=== PATIENT | male | born 1970 | race Two or more races ===

== ENCOUNTER 2017-04-18 15:26 | Inpatient (IN) | payer MEDICAID ==
[2017-04-18] MEDS ORDERED: IBUPROFEN 600 MG TAB PO PRN (16:37)
--- NOTE | 2017-04-18 16:40 | PDOREHIP ---
Admission [facility] - Admission - 3 Day Assessment Period Admission Date/Day 1: 04/18/17 Day 2: 04/19/17 Day 3: 04/20/17 - Active Diagnoses Comorbidities and Co-existing Conditions at Admission: 89431. None of the Above - Skin Conditions Unhealed Pressure Ulcer (1 or more/Stage 1 or >)-Admission: 0. No
--- NOTE | 2017-04-18 17:27 | GHP ---
[f rep st] HISTORY AND PHYSICAL POST ADMISSION PHYSICIAN EVALUATION AND REHABILITATION TREATMENT PLAN DATE OF ADMISSION: 04/18/2017 DATE OF EVALUATION: 04/18/2017 TIME OF EVALUATION: 1600 hours REFERRING FACILITY: [facility] IMPAIRMENT GROUP: 1.1. DATE OF ONSET: 04/14/2017 REFERRING PHYSICIAN: Dr. Taylor CONSULTING PHYSICIANS: He was seen by neurologist, Dr. Heladio Hayes. REHABLITATION DIAGNOSIS: Cerebrovascular accident ETIOLOGIC DIAGNOSIS: Left body involvement (right brain) HISTORY OF PRESENT ILLNESS: This patient was admitted to [facility] on 04/14/2017, with headaches, left-sided weakness, confusion and disorientation. He had been seen in the emergency department 2 days prior with poorly controlled hypertension, headache and left-sided numbness. At that time , he had a negative head CT, and he was discharged to home. When he was readmitted, MRI of the brain showed a cerebrovascular accident in the right posterior cerebral artery distribution including the right medial temporal lobe and the right thalamus. CT angiogram showed occlusion of the proximal P1 segment of the right posterior cerebral artery and showed mild chronic small- vessel ischemic change. There was atherosclerotic plaque seen in the left intradural vertebral artery. Echocardiogram with bubble study showed mild LVH but did not show any source of embolism. He had monitoring in the hospital and there were no cardiac dysrhythmias noted. He was already prescribed antihypertensives as well as atorvastatin, but he reports that he was not compliant with his medications. His atorvastatin dose was increased from 20 mg to 40 mg daily. His amlodipine at 5 mg daily was discontinued to allow permissive hypertension. He was continued on hydrochlorothiazide 25 mg daily, and losartan 50 mg daily. Clopidogrel was started as well while he was in the hospital. He was noted to have a left homonymous hemianopsia as well as need for assistance with activities of daily living and with mobility. Additionally , cognitive deficits were noted including short-term memory and attention. He was stabilized and appropriate for inpatient rehabilitation OTHER STUDIES AND LABS DURING HIS STAY: Hemoglobin A1c was 5.4. Lipid panel showed a total cholesterol of 176, an HDL of 55, and LDL of 92. Renal function and electrolytes were overall within normal limits. He had mild hypokalemia, but this corrected. Troponin was negative. INR and PT were normal. CBC was normal. PRECAUTIONS: He is a fall risk. ACTIVE COMORBIDITIES: He has no active tier 1, tier 2, or tier 3 comorbidities. PAST MEDICAL HISTORY: 1. Hypertension. 2. Dyslipidemia. PAST SURGICAL HISTORY: He has not had any surgeries. ALLERGIES: There is an allergy listed to prochlorperazine. PRE-HOSPITAL MEDICATIONS: 1. Amlodipine 5 mg p.o. daily. 2. Atorvastatin 20 mg p.o. daily. 3. Hydrochlorothiazide 25 mg p.o. daily. 4. Ibuprofen p.r.n. 5. Losartan 50 mg p.o. daily. ADMISSION MEDICATIONS: 1. Losartan 25 mg p.o. daily. 2. Aspirin 81 mg p.o. daily. 3. Fioricet. 4. Ibuprofen. 5. Hydrochlorothiazide 25 mg p.o. daily. 6. Atorvastatin 40 mg p.o. daily. 7. Fluoxetine 20 mg p.o. daily. 8. Clopidogrel 75 mg p.o. daily. FAMILY HISTORY: Noncontributory. 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 He lives with his . He has adult children who no longer live at home. He is a nonsmoker. He uses occasional alcohol and does not use other substances of abuse. He reports he has 3 or 4 steps to enter the house, and then several other steps once he is in the house. REVIEW OF SYSTEMS: He denies headache at present. He is aware of impaired vision on the left side, and he is unable to locate the examiner initially. He says his left leg feels like it is heavy and bloated, though he otherwise denies focal weakness. He has altered sensation on the left side of his body, he describes it as numbness, including the left side of his face, his back, his left arm, and his left leg. He denies difficulty swallowing. He denies chest pain or palpitations. He denies fevers or chills, weight gain or weight loss, nausea, vomiting, constipation, or diarrhea, dysuria or urinary frequency, skin rash or skin breakdown, joint pain or joint swelling. Otherwise, a 10-point review of systems is negative. PHYSICAL EXAMINATION: VITAL SIGNS: Not yet recorded in the chart, though nurse informed me that his systolic blood pressures were in the 180s and his diastolic in the 1-teens. His weight is 86.6 kg for a body mass index of 29.5. GENERAL: This is an overweight man lying in bed, cooperative and in no acute distress. HEENT: Extraocular movements are intact. Eyes are very dark and it is difficult to determine pupil response. However, pupils are round and symmetric in both eyes. Mucous membranes are moist. Dentition is in good condition. He has a non-crowded airway, Mallampati class 2. NECK: Supple. HEART: There is a regular rate and rhythm with no murmurs, rubs, or gallops. LUNGS: Clear to auscultation bilaterally. ABDOMEN: Soft, nontender, nondistended with normoactive bowel sounds and no hepatosplenomegaly. EXTREMITIES: There is no cyanosis, clubbing, or edema. NEUROLOGIC: He is alert and oriented x3, though he asks the name of the facility. He knows where he is and why he is here. Cranial nerves 2-12 are grossly intact. Strength is 4/5 in the left hand weight calculator and the left triceps, 4+/5 in the left deltoid and left biceps, 4/5 at the left hamstring, and otherwise 5/5 overall in all other muscle groups. Sensation is present to light touch, but he reports that it is abnormal, though he is unable to give more specifics. Deep tendon reflexes are 2+ bilaterally at the biceps, patellar, and Achilles tendons. There is no pronator drift. Visual field testing by confrontation shows a gross left homonymous hemianopsia. [id number] testing is normal on the right upper extremity and is inaccurate though without other movement abnormalities; that is , it is smooth but inaccurate on the left upper extremity. He is able to stand up independently without use of his hands on the bed rails, and has a somewhat wide-based stance. Gait was not tested. CURRENT LEVEL OF FUNCTION: Per the pre-admission screen. Regarding diet, feeding, and swallowing, he was on a regular diet with thin liquids. Regarding grooming, he required standby assist. Dressing was accomplished with set-up for the upper body and minimal assist for the lower body. Toileting was done with standby assist to modified independence. He was continent of bladder and bowel. Bed mobility required only standby assist. For transfers, he required contact guard for [id number] and minimal assist to transfer from bed to chair. Balance required contact guard to minimal assist. Endurance was fair. Regarding gait, he was able to ambulate 250 feet with minimal assist and handheld assistance due to decreased vision and for guiding. He had a wide base of support and increased lateral trunk sway, and decreased swing phase in the left lower extremity. Regarding communication, he was noted to have mild to moderate cognitive deficits and short-term memory, working memory, and attention. IMPRESSION: The patient is a 46-year-old man who unfortunately suffered a cerebrovascular accident in the posterior circulation on the right and comes to rehab with a left homonymous hemianopsia, mild weakness in the left upper and lower extremities, sensory alteration on the left side of his body, and associated deficits to mobility and activities of daily living. Additionally, he was noted to have some short-term memory loss and attention deficit. He is appropriate for inpatient rehabilitation where he will benefit from physical and occupational therapies regarding activities of daily living and mobility with particular attention to visual function per Occupational Therapy. He will be assessed and treated by Speech and Language Pathology regarding cognitive and communication issues. He will have nursing care regarding fall risk, bowel and bladder, skin integrity, medication administration, and medication education. He will have the care of a physician regarding blood pressure management, dyslipidemia, risk for neurologic deterioration, risk for deep venous thrombosis, and optimal medication for neuro recovery. His goal is to return home with outpatient services for a safe discharge. It is anticipated that he will achieve independence with bed mobility, transfers and grooming, and modified independence for bathing and ambulation on level and unlevel surfaces. He will need to be able to negotiate his environment safely with strategies for visual loss, there will be patient and family education, and there will be durable medical equipment as indicated. He will receive therapy with physical therapy, occupational therapy, and speech and language pathology for 60 minutes per day for each discipline on 5-7 days of the week. His expected duration of stay is 7-10 days. It is anticipated that upon discharge, he will continue to benefit from outpatient therapy including OT, BLACKING WHEEL TENDER, and PT, as well as a stroke support group. ASSESSMENT AND PLAN: 1. Right posterior circulation cerebrovascular accident with homonymous hemianopsia and deficits to mobility and activities of daily living. Physical and occupational therapy to optimize mobility, mobility, and activities of daily living, and to optimize visual function. 2. Cognitive and communication deficits to be assessed and treated per Speech and Language Pathology. 3. Secondary stroke prophylaxis. Continue atorvastatin, blood pressure control , and aspirin and clopidogrel. The plan per Neurology was to discontinue the clopidogrel after 1 month. 4. Hypertension. He appeared to be markedly hypertensive upon admission. Blood pressure will be monitored. It is likely that the amlodipine will be resumed in order to optimize his blood pressure. 5. Cryptogenic etiology of the stroke. There is a hypercoagulable panel pending, and these results will be obtained when they are available. 6. Left ventricular hypertrophy should respond to blood pressure control. 7. Pharmacologic treatment for optimizing neuro rehabilitation. He was begun on fluoxetine in the hospital and this will be continued. 8. Prophylaxis: He has ambulated 250' and has no hemiparesis. Observe for mobility. Will not initiate anticoagulation at present. There is no need for GI prophylaxis. /[id number]/MODL MTDD
[2017-04-18] MEDS: oxyCODONE IR 5 MG TAB PO PRN (21:05)
[2017-04-18] MEDS: traZODone 50 MG TAB PO PRN (23:56)
[2017-04-18] MEDS: ACETAMINOPHEN 325 MG TAB PO PRN (23:56)
[2017-04-19] MEDS: ASPIRIN 81 MG CHEWABLE TAB PO SCH (08:29)
[2017-04-19] MEDS: ATORVASTATIN CALCIUM 40 MG TAB PO SCH (08:29)
[2017-04-19] MEDS: FLUoxetine 20 MG CAP PO SCH (08:29)
[2017-04-19] MEDS: HYDROCHLOROTHIAZIDE 25 MG TAB PO SCH (08:29)
[2017-04-19] MEDS: LOSARTAN POTASSIUM 50 MG TAB PO SCH (08:29)
[2017-04-19] MEDS: CLOPIDOGREL BISULFATE 75 MG TAB PO SCH (08:29)
--- NOTE | 2017-04-19 09:36 | SOAPPROG ---
SOAP Progress Note Assessment/Plan: Assessment: 46-year-old man who suffered a right posterior circulation stroke 04/12/2017, with infarction in the medial temporal lobe and thalamus, with left homonymous hemianopsia. * Right posterior circulation cerebrovascular accident with homonymous hemianopsia and deficits to mobility and activities of daily living. Physical and occupational therapy to optimize mobility, mobility, and activities of daily living, and to optimize visual function. * Cognitive and communication deficits to be assessed and treated per Speech and Language Pathology. * Secondary stroke prophylaxis. Continue atorvastatin, blood pressure control, and aspirin and clopidogrel. The plan per Neurology was to discontinue the clopidogrel after 1 month. * Hypertension. It is likely that the amlodipine will need to be resumed in order to optimize his blood pressure. Continue to monitor. * Cryptogenic etiology of the stroke. Most likely vessel 2 vessel embolic stroke. There is a hypercoagulable panel pending, and these results will be obtained when they are available. * Left ventricular hypertrophy should respond to blood pressure control. * Pharmacologic treatment for optimizing neuro rehabilitation. He was begun on fluoxetine in the hospital and this will be continued. * Prophylaxis: He has ambulated 250' and has no hemiparesis. Observe for mobility. Will not initiate anticoagulation at present. There is no need for GI prophylaxis. 04/19/17 11:33 Subjective: Slept well after taking trazodone. Headache yesterday evening; reports headache occurs when he has to think too much or with excessive stimulation. Currently with bifrontal headache over eyebrows while sitting in the PT gym. Denies cough, dyspnea, fevers, chills. Objective: Vital Signs Temp Pulse Resp BP Pulse Ox 36.8 C 62 18 163/116 H 96 04/19/17 07:07 04/19/17 07:07 04/19/17 07:07 04/19/17 08:29 04/19/17 07:07 04/18/17 04/19/17 04/20/17 05:59 05:59 05:59 Intake Total 1100 354 Balance 1100 354 Physical Exam - Physical Exam General Appearance: WD/WN, alert, no apparent distress Respiratory: normal breath sounds, No crackles, No rhonchi, No wheezing Cardiac/Chest: regular rate, rhythm, No edema Skin: normal color, warm/dry Neuro/Psych: alert, normal mood/affect, oriented x 3, No abnormal gait ICD10 Worksheet Patient Problems: Problems Problem Status Onset Cerebrovascular accident (CVA) due to embolism of left posterior cerebral artery Acute HTN (hypertension) Acute Homonymous hemianopsia Acute - ICD10 Problem Qualifiers (1) Homonymous hemianopsia (2) Cerebrovascular accident (CVA) due to embolism of left posterior cerebral artery (3) HTN (hypertension)
[2017-04-19] MEDS: ACET/CAFFEINE/BUTA FIORICET 1 EACH TAB PO PRN (14:10)
[2017-04-19] MEDS: ACETAMINOPHEN 325 MG TAB PO PRN (21:11)
[2017-04-19] MEDS: oxyCODONE IR 5 MG TAB PO PRN (21:12)
[2017-04-19] MEDS: traZODone 50 MG TAB PO PRN (21:16)
[2017-04-20] MEDS: ATORVASTATIN CALCIUM 40 MG TAB PO SCH (09:30)
[2017-04-20] MEDS: CLOPIDOGREL BISULFATE 75 MG TAB PO SCH (09:30)
[2017-04-20] MEDS: HYDROCHLOROTHIAZIDE 25 MG TAB PO SCH (09:30)
[2017-04-20] MEDS: ASPIRIN 81 MG CHEWABLE TAB PO SCH (09:30)
[2017-04-20] MEDS: LOSARTAN POTASSIUM 50 MG TAB PO SCH (09:30)
[2017-04-20] MEDS: FLUoxetine 20 MG CAP PO SCH (09:30)
[2017-04-20] MEDS: ACET/CAFFEINE/BUTA FIORICET 1 EACH TAB PO PRN (13:07)
--- NOTE | 2017-04-20 13:43 | SOAPPROG ---
SOAP Progress Note Assessment/Plan: Assessment: 46-year-old man who suffered a right posterior circulation stroke 04/12/2017, with infarction in the medial temporal lobe and thalamus, with left homonymous hemianopsia. * Right posterior circulation cerebrovascular accident with homonymous hemianopsia and deficits to mobility and activities of daily living. Physical and occupational therapy to optimize mobility, mobility, and activities of daily living, and to optimize visual function. * Cognitive and communication deficits to be assessed and treated per Speech and Language Pathology. * Secondary stroke prophylaxis. Continue atorvastatin, blood pressure control, and aspirin and clopidogrel. The plan per Neurology was to discontinue the clopidogrel after 1 month. * Hypertension. It is likely that the amlodipine will need to be resumed in order to optimize his blood pressure. Continue to monitor. * Headache. Encouraged use of acetaminophen rather than Fioricet. * Cryptogenic etiology of the stroke. Most likely vessel to vessel embolic stroke per Neurology notes from the hospital. There is a hypercoagulable panel pending. D/W lab at [facility]: prothrombin gene mutation, anticardiolipin results to be faxed.. Lupus anticoagulant & Gefof viper venom were send out labs; cancelled, lost in transit. * Left ventricular hypertrophy should respond to blood pressure control. * Pharmacologic treatment for optimizing neuro rehabilitation. He was begun on fluoxetine in the hospital and this will be continued. * Prophylaxis: He has ambulated 250' and has no hemiparesis. Observe for mobility. Will not initiate anticoagulation at present. There is no need for GI prophylaxis. 04/20/17 13:35 Subjective: No complaints. Resting in bed between therapies. Sleeping well. Has a headache right frontal; improved after Fioricet. No fevers, chills, cough, dyspnea. Objective: Vital Signs Temp Pulse Resp BP Pulse Ox 36.7 C 80 16 141/99 H 97 04/20/17 07:21 04/20/17 07:21 04/20/17 07:21 04/20/17 09:30 04/20/17 07:21 04/19/17 04/20/17 04/21/17 05:59 05:59 05:59 Intake Total 1100 1480 472 Balance 1100 1480 472 Physical Exam - Physical Exam General Appearance: WD/WN, alert, no apparent distress, obese Respiratory: No respiratory distress, No accessory muscle use Skin: normal color, warm/dry Neuro/Psych: alert, normal mood/affect, oriented x 3 ICD10 Worksheet Patient Problems: Problems Problem Status Onset Cerebrovascular accident (CVA) due to embolism of left posterior cerebral artery Acute HTN (hypertension) Acute Homonymous hemianopsia Acute - ICD10 Problem Qualifiers (1) Homonymous hemianopsia (2) Cerebrovascular accident (CVA) due to embolism of left posterior cerebral artery (3) HTN (hypertension)
[2017-04-21] MEDS: FLUoxetine 20 MG CAP PO SCH (08:24)
[2017-04-21] MEDS: LOSARTAN POTASSIUM 50 MG TAB PO SCH (08:24)
[2017-04-21] MEDS: ATORVASTATIN CALCIUM 40 MG TAB PO SCH (08:25)
[2017-04-21] MEDS: CLOPIDOGREL BISULFATE 75 MG TAB PO SCH (08:25)
[2017-04-21] MEDS: ASPIRIN 81 MG CHEWABLE TAB PO SCH (08:25)
[2017-04-21] MEDS: HYDROCHLOROTHIAZIDE 25 MG TAB PO SCH (08:25)
[2017-04-21] MEDS: ACET/CAFFEINE/BUTA FIORICET 1 EACH TAB PO PRN ×2 (08:46→18:20)
--- NOTE | 2017-04-21 11:33 | SOAPPROG ---
[facility] Progress Note Assessment/Plan: Assessment: 46-year-old man who suffered a right posterior circulation stroke 04/12/2017, with infarction in the medial temporal lobe and thalamus, with left homonymous hemianopsia. * Right posterior circulation cerebrovascular accident with homonymous hemianopsia and deficits to mobility and activities of daily living. Initial functional independence measure 100. Ambulates almost at supervision level though needs occasional guiding regarding objects on his left side. Lopez balance score was 51/56. He ambulated greater than 150 feet with no device, he climbed and descended 18 stairs with 1 rail and standby assist. ADLs are accomplished with with standby assist and he is advancing to independent in his room today. Continue physical and occupational therapy to optimize mobility, mobility, and activities of daily living, and to optimize visual function. * Cognitive and communication deficits. Deficits this to high level attention and memory tasks. Deficit to mathematics but it could be he depends on insulin paper to workout math problems and visual impairment is interfering. May have a deficit to auditory processing. Will likely need help with medication management. Continue Speech and Language Pathology. * Secondary stroke prophylaxis. Continue atorvastatin, blood pressure control, and aspirin and clopidogrel. The plan per Neurology was to discontinue the clopidogrel after 1 month. * Hypertension. Improving with losartan and hydrochlorothiazide. He may not need resumption of amlodipine. Continue to monitor. * Involuntary emotional expression disorder. CHronic premorbid. Might have some benefit from fluoxetine. No indication for other treatment at [facility]. * Headache. Encouraged use of acetaminophen rather than Fioricet. * Cryptogenic etiology of the stroke. Most likely vessel to vessel embolic stroke per Neurology notes from the hospital. There is a hypercoagulable panel pending. D/W lab at [facility]: prothrombin gene mutation, anticardiolipin results to be faxed.. Lupus anticoagulant & Geoff viper venom were send out labs; cancelled, lost in transit. * Left ventricular hypertrophy should respond to blood pressure control. * Pharmacologic treatment for optimizing neuro rehabilitation. He was begun on fluoxetine in the hospital and this will be continued. * Prophylaxis: He has ambulated 250' and has no hemiparesis. No indication for systemic anticoagulation. There is no need for GI prophylaxis. Attended staffing, 15 minutes. Discussed with case management, nursing, dietitian, PT, OT, CLINICAL TRIAL MANAGER. He lives in a split-level home with his . 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 Expect continued improvement towards independent function at home. 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 Will need Neuro-Ophthalmology evaluation after discharge. Discharge date of 04/28/2017. 04/21/17 11:33 04/21/17 11:36 Subjective: No complaints. Feels that he is getting better. Has improved use of his left hand though he still has abnormal sensations in his left arm and leg. Describes easy crying which has been the case for him for many years. Denies depression. Objective: Vital Signs Temp Pulse Resp BP Pulse Ox 36.8 C 82 18 138/103 H 95 04/21/17 08:00 04/21/17 08:00 04/21/17 08:00 04/21/17 08:25 04/21/17 08:00 04/20/17 04/21/17 04/22/17 05:59 05:59 05:59 Intake Total 1480 1622 480 Balance 1480 1622 480 - Time Spent With Patient Time Spent With Patient: Greater than 35 minutes floor time today, including more than 50% of time in coordination of care during staffing meeting, and counseling patient. Physical Exam - Physical Exam General Appearance: WD/WN, alert, no apparent distress Respiratory: No respiratory distress, No accessory muscle use Skin: normal color, warm/dry Neuro/Psych: alert, normal mood/affect, oriented x 3 ICD10 Worksheet Patient Problems: Problems Problem Status Onset Cerebrovascular accident (CVA) due to embolism of left posterior cerebral artery Acute HTN (hypertension) Acute Homonymous hemianopsia Acute - ICD10 Problem Qualifiers (1) Homonymous hemianopsia (2) Cerebrovascular accident (CVA) due to embolism of left posterior cerebral artery (3) HTN (hypertension)
[2017-04-21] MEDS: oxyCODONE IR 5 MG TAB PO PRN (20:51)
[2017-04-21] MEDS: traZODone 50 MG TAB PO PRN (20:51)
[2017-04-22] MEDS: HYDROCHLOROTHIAZIDE 25 MG TAB PO SCH (08:52)
[2017-04-22] MEDS: FLUoxetine 20 MG CAP PO SCH (08:53)
[2017-04-22] MEDS: ASPIRIN 81 MG CHEWABLE TAB PO SCH (08:53)
[2017-04-22] MEDS: LOSARTAN POTASSIUM 50 MG TAB PO SCH (08:53)
[2017-04-22] MEDS: ATORVASTATIN CALCIUM 40 MG TAB PO SCH (08:53)
[2017-04-22] MEDS: CLOPIDOGREL BISULFATE 75 MG TAB PO SCH (08:53)
--- NOTE | 2017-04-22 10:45 | SOAPPROG ---
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 * Right posterior circulation cerebrovascular accident with homonymous hemianopsia and deficits to mobility and activities of daily living. Initial functional independence measure 100. Ambulates almost at supervision level though needs occasional guiding regarding objects on his left side. Lopez balance score was 51/56. He ambulated greater than 150 feet with no device, he climbed and descended 18 stairs with 1 rail and standby assist. ADLs are accomplished with with standby assist and he is advancing to independent in his room today. Continue physical and occupational therapy to optimize mobility, mobility, and activities of daily living, and to optimize visual function. * Cognitive and communication deficits. Deficits this to high level attention and memory tasks. Deficit to mathematics but it could be he depends on insulin paper to workout math problems and visual impairment is interfering. May have a deficit to auditory processing. Will likely need help with medication management. Continue Speech and Language Pathology. * Secondary stroke prophylaxis. Continue atorvastatin, blood pressure control, and aspirin and clopidogrel. The plan per Neurology was to discontinue the clopidogrel after 1 month. * Borderline Hypertension. 130/80. Improving with losartan and hydrochlorothiazide. He may not need resumption of amlodipine. Continue to monitor. * Involuntary emotional expression disorder. CHronic premorbid. Might have some benefit from fluoxetine. No indication for other treatment at present. * Headache. Encouraged use of acetaminophen rather than Fioricet. * Cryptogenic etiology of the stroke. Most likely vessel to vessel embolic stroke per Neurology notes from the hospital. There is a hypercoagulable panel pending. D/W lab at [facility]: prothrombin gene mutation, anticardiolipin results to be faxed.. Lupus anticoagulant & Geoff viper venom were send out labs; cancelled, lost in transit. * Left ventricular hypertrophy should respond to blood pressure control. * Pharmacologic treatment for optimizing neuro rehabilitation. He was begun on fluoxetine in the hospital and this will be continued. * Prophylaxis: He has ambulated 250' and has no hemiparesis. No indication for systemic anticoagulation. There is no need for GI prophylaxis. Plan: Cont Dr Pedersen's rehab treatment plan 04/22/17 10:43 Subjective: In good spirits C/O mostly R cecil-orbital headache, "as if its the eyeballs" exacerbated on upward and downward gaze. No F/C/CP/SOB/N/V/D/C Objective: Vital Signs Temp Pulse Resp BP Pulse Ox 36.8 C 70 17 130/83 H 97 04/21/17 18:25 04/22/17 08:00 04/22/17 08:00 04/22/17 08:53 04/22/17 08:00 04/21/17 04/22/17 04/23/17 05:59 05:59 05:59 Intake Total 1622 1380 Balance 1622 1380 Physical Exam - Physical Exam General Appearance: alert, no apparent distress Neck: supple Respiratory: lungs clear Cardiac/Chest: regular rate, rhythm Skin: normal color, warm/dry Extremities: No pedal edema, No calf tenderness Neuro/Psych: alert, normal mood/affect, oriented x 3, abnormal gait (slow), motor weakness, sensory deficit, cognition abnormalities (? neglect), other (no acute changes), No speech abnormalities ICD10 Worksheet Patient Problems: Problems Problem Status Onset Cerebrovascular accident (CVA) due to embolism of left posterior cerebral artery Acute HTN (hypertension) Acute Homonymous hemianopsia Acute
[2017-04-22] MEDS: oxyCODONE IR 5 MG TAB PO PRN (18:43)
[2017-04-22] MEDS: traZODone 50 MG TAB PO PRN (21:00)
[2017-04-23] MEDS: LOSARTAN POTASSIUM 50 MG TAB PO SCH (09:23)
[2017-04-23] MEDS: ASPIRIN 81 MG CHEWABLE TAB PO SCH (09:24)
[2017-04-23] MEDS: ATORVASTATIN CALCIUM 40 MG TAB PO SCH (09:24)
[2017-04-23] MEDS: CLOPIDOGREL BISULFATE 75 MG TAB PO SCH (09:24)
[2017-04-23] MEDS: HYDROCHLOROTHIAZIDE 25 MG TAB PO SCH (09:25)
[2017-04-23] MEDS: FLUoxetine 20 MG CAP PO SCH (09:25)
[2017-04-23] MEDS: oxyCODONE IR 5 MG TAB PO PRN ×2 (09:29→22:30)
--- NOTE | 2017-04-23 13:46 | SOAPPROG ---
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 * Right posterior circulation cerebrovascular accident with homonymous hemianopsia and deficits to mobility and activities of daily living. Initial functional independence measure 100. Ambulates with SBA and cuing for occasional guiding regarding objects on his left side. Lopez balance score was 51/56. He ambulated greater than 150 feet with no device, he climbed and descended 18 stairs with 1 rail and standby assist. ADLs are accomplished with with standby assist and he is advancing to independent in his room today. Continue physical and occupational therapy to optimize mobility, mobility, and activities of daily living, and to optimize visual function. * Cognitive and communication deficits. Deficits this to high level attention and memory tasks. Deficit to mathematics but it could be he depends on insulin paper to workout math problems and visual impairment is interfering. May have a deficit to auditory processing. Will likely need help with medication management. Continue Speech and Language Pathology. * Secondary stroke prophylaxis. Continue atorvastatin, blood pressure control, and aspirin and clopidogrel. The plan per Neurology was to discontinue the clopidogrel after 1 month. * Borderline Hypertension. 130/80. Improving with losartan and hydrochlorothiazide. He may not need resumption of amlodipine. Continue to monitor. * Involuntary emotional expression disorder. CHronic premorbid. Might have some benefit from fluoxetine. No indication for other treatment at present. * Headache. Encouraged use of acetaminophen rather than Fioricet. * Cryptogenic etiology of the stroke. Most likely vessel to vessel embolic stroke per Neurology notes from the hospital. There is a hypercoagulable panel pending. D/W lab at [facility]: prothrombin gene mutation, anticardiolipin results to be faxed.. Lupus anticoagulant & Geoff viper venom were send out labs; cancelled, lost in transit. * Left ventricular hypertrophy should respond to blood pressure control. * Pharmacologic treatment for optimizing neuro rehabilitation. He was begun on fluoxetine in the hospital and this will be continued. * Prophylaxis: He has ambulated 250' and has no hemiparesis. No indication for systemic anticoagulation. There is no need for GI prophylaxis. Plan: Cont Dr Pedersen's rehab treatment plan 04/23/17 13:43 Subjective: In good spirits Engaging and social on unit No new problems or C/O's Decreasing PADILLA No F/C/CP/SOB/N/V/D/C Objective: Vital Signs Temp Pulse Resp BP Pulse Ox 36.7 C 81 18 138/78 H 96 04/23/17 07:10 04/23/17 07:10 04/23/17 07:10 04/23/17 09:25 04/23/17 07:10 04/22/17 04/23/17 04/24/17 05:59 05:59 05:59 Intake Total 1380 1340 600 Balance 1380 1340 600 Physical Exam - Physical Exam General Appearance: alert, no apparent distress Neck: supple Respiratory: lungs clear Cardiac/Chest: regular rate, rhythm Skin: normal color, warm/dry Extremities: No pedal edema, No calf tenderness Neuro/Psych: alert, normal mood/affect, oriented x 3, 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
[2017-04-23] MEDS: traZODone 50 MG TAB PO PRN (22:30)
[2017-04-24] MEDS: FLUoxetine 20 MG CAP PO SCH (08:26)
[2017-04-24] MEDS: HYDROCHLOROTHIAZIDE 25 MG TAB PO SCH (08:26)
[2017-04-24] MEDS: ATORVASTATIN CALCIUM 40 MG TAB PO SCH (08:26)
[2017-04-24] MEDS: ASPIRIN 81 MG CHEWABLE TAB PO SCH (08:26)
[2017-04-24] MEDS: CLOPIDOGREL BISULFATE 75 MG TAB PO SCH (08:26)
[2017-04-24] MEDS: LOSARTAN POTASSIUM 50 MG TAB PO SCH (08:30)
--- NOTE | 2017-04-24 10:52 | SOAPPROG ---
CEC[facility] Progress Note Assessment/Plan: Assessment: 46-year-old man who suffered a right posterior circulation stroke 04/12/2017, with infarction in the medial temporal lobe and thalamus, with left homonymous hemianopsia. * Right posterior circulation cerebrovascular accident with homonymous hemianopsia and deficits to mobility and activities of daily living. Initial functional independence measure 100 on 04/21/17. Ambulated almost at supervision level though needs occasional guiding regarding objects on his left side. Lopez balance score was 51/56. He ambulated greater than 150 feet with no device, he climbed and descended 18 stairs with 1 rail and standby assist. ADLs are accomplished with with standby assist and he was advanced to independent in his room on 04/21/17. Continue physical and occupational therapy to optimize mobility, mobility, and activities of daily living, and to optimize visual function. * Cognitive and communication deficits. Deficits this to high level attention and memory tasks. Deficit to mathematics but it could be he depends on pencil and paper to work math problems and visual impairment is interfering. May have a deficit to auditory processing. Will likely need help with medication management. Continue Speech and Language Pathology. * Secondary stroke prophylaxis. Continue atorvastatin, blood pressure control, and aspirin and clopidogrel. The plan per Neurology was to discontinue the clopidogrel after 1 month, or 05/12/17. * Abnormal sensations LUE & LLE. Head CT negative 04/23/17 for CVA extension or hemorrhagic transformation. Sensations likely due to thalamic infarct. Possible IT band syndrome * Hypertension. Improving with losartan and hydrochlorothiazide but still has highs. Increase losartan from 50 mg QD to 75 mg QD starting 04/24/17.. * Involuntary emotional expression disorder. Chronic premorbid. Might have some benefit from fluoxetine. No indication for other treatment at present. * Headache. Encouraged use of acetaminophen rather than Fioricet. * Cryptogenic etiology of the stroke. Most likely vessel to vessel embolic stroke per Neurology notes from the hospital. Factor 5 Leiden, lupus anticoagulant, Valerio viper venom and anti-cardiolipin antibody tests were all negative. He has a positive prothrombin gene mutation. D/W Neurology 04/24/17, Dr. Jarquin. No indication for anticoagulation unless he has venous thrombosis. COntinue plan re dual therapy with clopidogrel & ASA X 1 mo then ASA alone. * Left ventricular hypertrophy should respond to blood pressure control. * Pharmacologic treatment for optimizing neuro rehabilitation. He was begun on fluoxetine in the hospital and this will be continued. * Prophylaxis: He has ambulated 250' and has no hemiparesis. No indication for systemic anticoagulation. There is no need for GI prophylaxis. He lives in a split-level home with his . She works maritime officer. Expect continued improvement towards independent function at home. 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 Will need Neuro-Ophthalmology evaluation after discharge. Discharge date of 2016. 04/24/17 11:07 Subjective: Reports abnormal sensation in his left arm and leg. Says that the left leg in the thigh feels heart is rock on even though he can move it freely and he has sensation in his left fingers as if there is a rubber band around the fingers and the tips were swollen. Otherwise no loss of strength or coordination. He had the sensations yesterday and was sent to the emergency department where head CT showed no extension of the stroke and no hemorrhage. Objective: Vital Signs Temp Pulse Resp BP Pulse Ox 36.9 C 86 18 139/95 H 99 04/23/17 22:29 04/24/17 08:00 04/23/17 22:29 04/24/17 08:30 04/24/17 08:00 04/23/17 04/24/17 04/25/17 05:59 05:59 05:59 Intake Total 1340 1080 120 Balance 1340 1080 120 Physical Exam - Physical Exam General Appearance: WD/WN, alert, no apparent distress Respiratory: No respiratory distress, No accessory muscle use Skin: normal color, warm/dry Extremities: normal range of motion, non-tender, No pedal edema, No calf tenderness Neuro/Psych: alert, normal mood/affect, oriented x 3, No abnormal gait ICD10 Worksheet Patient Problems: Problems Problem Status Onset Arterial ischemic stroke, vertebrobasilar, thalamic, acute Acute Hallucination Acute Hypertensive urgency Acute Methamphetamine abuse Acute
[2017-04-24] MEDS ORDERED: LOSARTAN POTASSIUM 25 MG TAB PO ONE (11:00)
[2017-04-24] MEDS: oxyCODONE IR 5 MG TAB PO PRN (21:49)
[2017-04-24] MEDS: traZODone 50 MG TAB PO PRN (21:50)
[2017-04-25] MEDS: CLOPIDOGREL BISULFATE 75 MG TAB PO SCH (08:40)
[2017-04-25] MEDS: FLUoxetine 20 MG CAP PO SCH (08:40)
[2017-04-25] MEDS: ATORVASTATIN CALCIUM 40 MG TAB PO SCH (08:41)
[2017-04-25] MEDS: HYDROCHLOROTHIAZIDE 25 MG TAB PO SCH (08:41)
[2017-04-25] MEDS: ASPIRIN 81 MG CHEWABLE TAB PO SCH (08:41)
[2017-04-25] MEDS: LOSARTAN POTASSIUM 50 MG TAB PO SCH (08:41)
--- NOTE | 2017-04-25 10:23 | SOAPPROG ---
CECEL[facility] Progress Note Assessment/Plan: 46-year-old man who suffered a right posterior circulation stroke 04/12/2017, with infarction in the medial temporal lobe and thalamus, with left homonymous hemianopsia. 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 He has impaired sensation on the left side, and has not been reported any tactile hallucinations to me, however he has reported some possibly to Dr. Pedersen.. Hallucinations are not disturbing to him, and in fact he hopes to have additional experiences where he sees loved ones who had . Otherwise patient is reportedly participating well in therapies, he has no particular concerns. A total of 35 minutes was spent on the floor in the care of the patient, the majority of which was spent in the counseling and coordination of care regarding discussion of hallucinations, as well as possible treatment options. Counseling regarding the strong emotional nature of his hallucinations. * Right posterior circulation cerebrovascular accident with homonymous hemianopsia and deficits to mobility and activities of daily living. Initial functional independence measure 100 on 04/21/17. Ambulated almost at supervision level though needs occasional guiding regarding objects on his left side. Lopez balance score was 51/56. He ambulated greater than 150 feet with no device, he climbed and descended 18 stairs with 1 rail and standby assist. ADLs are accomplished with with standby assist and he was advanced to independent in his room on 04/21/17. Continue physical and occupational therapy to optimize mobility, mobility, and activities of daily living, and to optimize visual function. * Cognitive and communication deficits. Deficits this to high level attention and memory tasks. Deficit to mathematics but it could be he depends on pencil and paper to work math problems and visual impairment is interfering. May have a deficit to auditory processing. Will likely need help with medication management. Continue Speech and Language Pathology. * peduncular hallucinosis/ thalamic experiential hallucinosis: Visual and tactile hallucinations, not disturbing, patient has seen nonspecific movement in the left aspect of his visual cardozo, felt some tactile sensations that were not real, and has had hallucinations of his friend tonia and is hoping to see his mother as well. Discussed possible treatment options with patient, currently just monitoring clinically. * Secondary stroke prophylaxis. Continue atorvastatin, blood pressure control, and aspirin and clopidogrel. The plan per Neurology was to discontinue the clopidogrel after 1 month, or 05/12/17. * Abnormal sensations LUE & LLE. Head CT negative 04/23/17 for CVA extension or hemorrhagic transformation. Sensations likely due to thalamic infarct. Possible IT band syndrome * Hypertension. Improving with losartan and hydrochlorothiazide but still has highs. Increase losartan from 50 mg QD to 75 mg QD starting 04/24/17.. * Involuntary emotional expression disorder. Chronic premorbid. Might have some benefit from fluoxetine. No indication for other treatment at present. * Headache. Encouraged use of acetaminophen rather than Fioricet. * Cryptogenic etiology of the stroke. Most likely vessel to vessel embolic stroke per Neurology notes from the hospital. Factor 5 Leiden, lupus anticoagulant, Valerio viper venom and anti-cardiolipin antibody tests were all negative. He has a positive prothrombin gene mutation. D/W Neurology 04/24/17, Dr. Jarquin. No indication for anticoagulation unless he has venous thrombosis. Continue plan re dual therapy with clopidogrel & ASA X 1 mo then ASA alone. * Left ventricular hypertrophy should respond to blood pressure control. * Pharmacologic treatment for optimizing neuro rehabilitation. He was begun on fluoxetine in the hospital and this will be continued. * Prophylaxis: He has ambulated 250' and has no hemiparesis. No indication for systemic anticoagulation. There is no need for GI prophylaxis. He lives in a split-level home with his . She works time study statistician. Expect continued improvement towards independent function at home. 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 Will need Neuro-Ophthalmology evaluation after discharge. Discharge date of 2016. 04/25/17 10:18 04/25/17 10:25 Subjective: Chief complaint: Visual hallucinations, abnormal tactile sensations No acute events overnight. Patient endorses some visual hallucinations early in his hospital course that were consistent with loved ones. Visual hallucinations are not concerning to him. Additionally, he endorsed some tactile sensations on the left side. He also endorsed some nonspecific hallucinations in his left visual field that involve movement but no specific form. Denies any shortness of breath or chest pain, no new numbness, tingling, or weakness. He states his mood is very good and he is not disturbed all by these hallucinations. Sleeping well, reportedly participating well in therapies. Objective: Vital Signs Temp Pulse Resp BP Pulse Ox 36.5 C 78 18 144/90 H 96 04/25/17 07:33 04/25/17 07:33 04/25/17 07:33 04/25/17 08:41 04/25/17 07:33 04/24/17 04/25/17 04/26/17 05:59 05:59 05:59 Intake Total 1080 840 586 Balance 1080 840 586 Physical Exam - Physical Exam General Appearance: WD/WN, alert, no apparent distress EENT: No scleral icterus (R), No scleral icterus (L) Respiratory: No respiratory distress, No accessory muscle use Skin: normal color, warm/dry, No cyanosis Extremities: No pedal edema, No swelling Neuro/Psych: no motor/sensory deficits, alert, normal mood/affect, other (Left- sided visual field deficit, no evidence of neglect on double simultaneous stimulation at the hands. He does endorse some abnormal sensation on the left side, feels like his limbs are stiff and unable to move very well. Endorses current hallucinations of nonspecific movement in his left visual field) ICD10 Worksheet Patient Problems: Problems Problem Status Onset Arterial ischemic stroke, vertebrobasilar, thalamic, acute Acute Hallucination Acute - ICD10 Problem Qualifiers (1) Arterial ischemic stroke, vertebrobasilar, thalamic, acute Qualifiers: Laterality: right Qualified Code(s): I63.211 - Cerebral infarction due to unspecified occlusion or stenosis of right vertebral arteries; I63.22 - Cerebral infarction due to unspecified occlusion or stenosis of basilar arteries (2) Hallucination
[2017-04-25] MEDS: oxyCODONE IR 5 MG TAB PO PRN (18:05)
[2017-04-25] MEDS: traZODone 50 MG TAB PO PRN (22:15)
[2017-04-26] MEDS: CLOPIDOGREL BISULFATE 75 MG TAB PO SCH (07:38)
[2017-04-26] MEDS: ATORVASTATIN CALCIUM 40 MG TAB PO SCH (07:38)
[2017-04-26] MEDS: ASPIRIN 81 MG CHEWABLE TAB PO SCH (07:38)
[2017-04-26] MEDS: HYDROCHLOROTHIAZIDE 25 MG TAB PO SCH (07:39)
[2017-04-26] MEDS: LOSARTAN POTASSIUM 50 MG TAB PO SCH (07:39)
[2017-04-26] MEDS: FLUoxetine 20 MG CAP PO SCH (07:39)
--- NOTE | 2017-04-26 11:46 | SOAPPROG ---
[facility] Progress Note Assessment/Plan: Assessment: 46-year-old man who suffered a right posterior circulation stroke 04/12/2017, with infarction in the medial temporal lobe and thalamus, with left homonymous hemianopsia. * Right posterior circulation cerebrovascular accident with homonymous hemianopsia and deficits to mobility and activities of daily living. Initial functional independence measure 100 on 04/21/17, improved to 112 as of 2016. He is independent on the unit. He is independent with activities of daily living. He has improved in his compensation for his hemianopsia. Lopez balance score was 51/56. He climbed and descended 18 stairs with 1 rail and standby assist. Continue physical and occupational therapy to optimize mobility , mobility, and activities of daily living, and to optimize visual function. * Cognitive and communication deficits. Deficits this to high level attention and memory tasks. Deficit to mathematics but it could be he depends on pencil and paper to work math problems and visual impairment is interfering. May have a deficit to auditory processing. Will likely need help with medication management. Continue Speech and Language Pathology. * Secondary stroke prophylaxis. Continue atorvastatin, blood pressure control, and aspirin and clopidogrel. The plan per Neurology was to discontinue the clopidogrel after 1 month, or 05/12/17. * Abnormal sensations LUE & LLE. Head CT negative 04/23/17 for CVA extension or hemorrhagic transformation. Sensations likely due to thalamic infarct. Possible IT band syndrome * Hypertension. Improving with losartan and hydrochlorothiazide but still has highs. Increase losartan from 50 mg QD to 75 mg QD starting 04/24/17.. * Involuntary emotional expression disorder. Chronic premorbid. Might have some benefit from fluoxetine. No indication for other treatment at present. * Headache. Encouraged use of acetaminophen rather than Fioricet. * Cryptogenic etiology of the stroke. Most likely vessel to vessel embolic stroke per Neurology notes from the hospital. Factor 5 Leiden, lupus anticoagulant, Valerio viper venom and anti-cardiolipin antibody tests were all negative. He has a positive prothrombin gene mutation. D/W Neurology 04/24/17, Dr. Jarquin. No indication for anticoagulation unless he has venous thrombosis. COntinue plan re dual therapy with clopidogrel & ASA X 1 mo then ASA alone. * Left ventricular hypertrophy should respond to blood pressure control. * Pharmacologic treatment for optimizing neuro rehabilitation. He was begun on fluoxetine in the hospital and this will be continued. * Prophylaxis: He has ambulated 250' and has no hemiparesis. No indication for systemic anticoagulation. There is no need for GI prophylaxis. Attendant staffing, 15 minutes. Discussed with case management, dietitian, nursing, PT, OT, FACSIMILE OPERATOR. Plan for home visit tomorrow afternoon, to assess safety in the home and plan for to bring him back to the unit later in the afternoon. If all goes well we will continue with planned discharge of 2016. He lives in a split-level home with his . She works time stamp assembler. Expect continued improvement towards independent function at home. 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 Will need Neuro-Ophthalmology evaluation after discharge. Continue outpatient PT, OT, FACSIMILE OPERATOR. 04/26/17 11:54 Subjective: No complaints. Sleeping well. No pain, cough, dyspnea, fevers, chills. Has noticed short-term memory loss. Objective: Vital Signs Temp Pulse Resp BP Pulse Ox 36.7 C 75 15 145/97 H 96 04/26/17 07:21 04/26/17 07:21 04/26/17 07:21 04/26/17 07:39 04/26/17 07:21 04/25/17 04/26/17 04/27/17 05:59 05:59 05:59 Intake Total 840 1886 472 Balance 840 1886 472 - Time Spent With Patient Time Spent With Patient: Greater than 35 minutes floor time today, including more than 50% of time in coordination of care during staffing meeting, and counseling patient. Physical Exam - Physical Exam General Appearance: WD/WN, alert, no apparent distress Respiratory: No respiratory distress, No accessory muscle use Cardiac/Chest: No edema Skin: normal color, warm/dry Neuro/Psych: no motor/sensory deficits, alert, normal mood/affect, oriented x 3 , other (Observed working with physical therapy, ambulating in harmon independently with a variety of distracting procedures per PT.) ICD10 Worksheet Patient Problems: Problems Problem Status Onset Arterial ischemic stroke, vertebrobasilar, thalamic, acute Acute Hallucination Acute - ICD10 Problem Qualifiers (1) Cerebrovascular accident (CVA) due to embolism of left posterior cerebral artery (2) HTN (hypertension) (3) Homonymous hemianopsia Qualifiers: Laterality: left Qualified Code(s): H53.462 - Homonymous bilateral field defects, left side
[2017-04-26] MEDS: ACETAMINOPHEN 325 MG TAB PO PRN (15:51)
[2017-04-26] MEDS: oxyCODONE IR 5 MG TAB PO PRN (19:54)
[2017-04-26] MEDS: traZODone 50 MG TAB PO PRN (20:35)
[2017-04-27] MEDS: ATORVASTATIN CALCIUM 40 MG TAB PO SCH (07:48)
[2017-04-27] MEDS: CLOPIDOGREL BISULFATE 75 MG TAB PO SCH (07:49)
[2017-04-27] MEDS: HYDROCHLOROTHIAZIDE 25 MG TAB PO SCH (07:49)
[2017-04-27] MEDS: ASPIRIN 81 MG CHEWABLE TAB PO SCH (07:49)
[2017-04-27] MEDS: FLUoxetine 20 MG CAP PO SCH (07:49)
[2017-04-27] MEDS: LOSARTAN POTASSIUM 50 MG TAB PO SCH (07:56)
[2017-04-27 07:58] VITALS: RESP 16
--- NOTE | 2017-04-27 10:07 | SOAPPROG ---
[facility] Progress Note Assessment/Plan: 46-year-old man who suffered a right posterior circulation stroke 04/12/2017, with infarction in the medial temporal lobe and thalamus, with left homonymous hemianopsia. Today's update: On home visit today, left mildly hypertensive, asymptomatic, returned profoundly hypertensive, still asymptomatic. Started amlodipine 2.5 mg once today and 5 mg daily after that, extra 25 mg of Losartan today. Continues to be hypertensive on 2 medications. Additionally, a total of 35 minutes was spent on the floor in the care of the patient, the majority of which was spent in the counseling and coordination of care regarding discharge planning and hypertension management options. Continue to monitor clinically. * Right posterior circulation cerebrovascular accident with homonymous hemianopsia and deficits to mobility and activities of daily living. Initial functional independence measure 100 on 04/21/17, improved to 112 as of 2016. He is independent on the unit. He is independent with activities of daily living. He has improved in his compensation for his hemianopsia. Lopez balance score was 51/56. He climbed and descended 18 stairs with 1 rail and standby assist. Continue physical and occupational therapy to optimize mobility , mobility, and activities of daily living, and to optimize visual function. * Cognitive and communication deficits. Deficits this to high level attention and memory tasks. Deficit to mathematics but it could be he depends on pencil and paper to work math problems and visual impairment is interfering. May have a deficit to auditory processing. Will likely need help with medication management. Continue Speech and Language Pathology. * peduncular hallucinosis/ thalamic experiential hallucinosis: Visual and tactile hallucinations, not disturbing, patient has seen nonspecific movement in the left aspect of his visual cardozo, felt some tactile sensations that were not real, and has had hallucinations of his friend tonia and is hoping to see his mother as well. Discussed possible treatment options with patient, currently just monitoring clinically. * Secondary stroke prophylaxis. Continue atorvastatin, blood pressure control, and aspirin and clopidogrel. The plan per Neurology was to discontinue the clopidogrel after 1 month, or 05/12/17. * Abnormal sensations LUE & LLE. Head CT negative 04/23/17 for CVA extension or hemorrhagic transformation. Sensations likely due to thalamic infarct. Possible IT band syndrome * Hypertension. Improving with losartan and hydrochlorothiazide but still has highs, more hypertensive on 04/27. Increase losartan from 50 mg QD to 75 mg QD starting 04/24/17, increasing to 100 mg daily with extra 25 mg today. Amlodipine 2.5 mg given once on 04/27/2017, starting 5 mg daily on 04/28/2017. * Involuntary emotional expression disorder. Chronic premorbid. Might have some benefit from fluoxetine. No indication for other treatment at present. * Headache. Encouraged use of acetaminophen rather than Fioricet. * Cryptogenic etiology of the stroke. Most likely vessel to vessel embolic stroke per Neurology notes from the hospital. Factor 5 Leiden, lupus anticoagulant, Valerio viper venom and anti-cardiolipin antibody tests were all negative. He has a positive prothrombin gene mutation. D/W Neurology 04/24/17, Dr. Jarquin. No indication for anticoagulation unless he has venous thrombosis. Continue plan re dual therapy with clopidogrel & ASA X 1 mo then ASA alone. * Left ventricular hypertrophy should respond to blood pressure control. * Pharmacologic treatment for optimizing neuro rehabilitation. He was begun on fluoxetine in the hospital and this will be continued. * Prophylaxis: He has ambulated 250' and has no hemiparesis. No indication for systemic anticoagulation. There is no need for GI prophylaxis. He lives in a split-level home with his . She works time study technician. Expect continued improvement towards independent function at home. 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 Will need Neuro-Ophthalmology evaluation after discharge. Discharge date of 2016. 04/27/17 13:29 Subjective: Chief complaint: Hypertension and discharge planning No acute events overnight. The patient was mildly hypertensive this morning, asymptomatic, and went on a home visit. Checked in with patient at home, he was doing well with his spouse. More hypertensive on return. Denies any shortness of breath or chest pain, no new numbness, tingling, weakness, headache , vision changes, or any other new complaint. He endorses that he is anxious however, woke up feeling anxious and is feeling anxious now. Objective: Vital Signs Temp Pulse Resp BP Pulse Ox 36.8 C 72 16 146/101 H 100 04/27/17 07:24 04/27/17 07:24 04/27/17 07:24 04/27/17 07:56 04/27/17 07:24 04/26/17 04/27/17 04/28/17 05:59 05:59 05:59 Intake Total 1886 1008 240 Balance 1886 1008 240 Physical Exam - Physical Exam General Appearance: WD/WN, alert, no apparent distress EENT: No scleral icterus (R), No scleral icterus (L) Neck: No carotid bruit Respiratory: lungs clear, normal breath sounds, No respiratory distress, No accessory muscle use, No rales, No rhonchi, No wheezing Cardiac/Chest: normal peripheral pulses, regular rate, rhythm, No edema, No diastolic murmur, No systolic murmur, No extra beats, No irregularly irregular Abdomen: normal bowel sounds, non-tender, soft Skin: normal color, warm/dry, No cyanosis, No diaphoresis, No mottled, No pallor Extremities: No pedal edema, No swelling Neuro/Psych: alert, normal mood/affect, other (Unchanged neuro, left visiual field deficit) ICD10 Worksheet Patient Problems: Problems Problem Status Onset Arterial ischemic stroke, vertebrobasilar, thalamic, acute Acute Hallucination Acute - ICD10 Problem Qualifiers (1) Arterial ischemic stroke, vertebrobasilar, thalamic, acute Qualifiers: Laterality: right Qualified Code(s): I63.211 - Cerebral infarction due to unspecified occlusion or stenosis of right vertebral arteries; I63.22 - Cerebral infarction due to unspecified occlusion or stenosis of basilar arteries (2) Hallucination
[2017-04-27] MEDS ORDERED: amLODIPine BESYLATE 5 MG TAB PO ONE (13:00)
[2017-04-27] MEDS ORDERED: LOSARTAN POTASSIUM 25 MG TAB PO ONE (13:22)
[2017-04-27 14:39] VITALS: TEMP 98.7
[2017-04-27 15:28] LABS: ANION GAP 16 mEq/L (8-16); CALCIUM 10.1 mg/dL (8.5-10.4); CARBON DIOXIDE 22 mEq/l (22-31); CHLORIDE 99 mEq/L (97-110); CREATININE 0.8 mg/dL (0.7-1.3); GLOMERULAR FILTRATION RATE > 60; GLUCOSE 92 mg/dL (70-100); POTASSIUM 4.1 mEq/L (3.5-5.2); SODIUM 137 mEq/L (134-144)
[2017-04-27 17:02] VITALS: PULSE 135
[2017-04-27 17:28] VITALS: BP 160/119; O2SAT 92
[2017-04-28] MEDS ORDERED: amLODIPine BESYLATE 5 MG TAB PO SCH (09:00)
[2017-04-28] MEDS ORDERED: LOSARTAN POTASSIUM 50 MG TAB PO SCH (09:00)
--- NOTE | 2017-04-28 17:41 | GDS ---
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 OTHER DISCHARGE DIAGNOSES: 1. Hypertension. 2. Methamphetamine abuse. CONSULTATIONS: There were none. PROCEDURES: There were none. COMPLICATIONS: He had accelerated hypertension and was sent to the emergency department, where methamphetamine use was uncovered. HISTORY AND HOSPITAL COURSE: This patient presented to [facility] on 04/14/2017, with headaches, left-sided weakness, confusion and disorientation. He had been seen 2 days prior in the emergency department with poorly controlled hypertension, headache and left-sided numbness, and at that time had a negative head CT and was discharged home. When he was readmitted, MRI of the brain showed a cerebrovascular accident in the right posterior cerebral artery distribution including the right medial temporal lobe and the right thalamus. He had homonymous hemianopsia on exam. There was an occlusion of the proximal P1 segment of the right posterior cerebral artery, and there was mild chronic small-vessel ischemic change. There were also atherosclerotic plaques in the left intradural vertebral artery. No clear etiology of the stroke was found on monitoring or on echocardiogram. The echocardiogram showed mild LVH. He was prescribed atorvastatin and was restarted on antihypertensives. He was stabilized and appropriate for inpatient rehabilitation. He made progress in rehabilitation. His initial functional independence measure was 100, which is consistent with independent living. However, the left homonymous hemianopsia and possible cognitive effects of the stroke affected his ability to navigate his environment and merited continued rehabilitation. His functional independence measure improved to 112 as of 04/26/2017, and he was progressed to independent on the unit. He was independent with activities of daily living and he was improved in terms of compensation for the hemianopsia. Lopez balance score was 51/56, which is consistent with a low fall risk. He climbed and descended 18 stairs with 1 rail and a standby assist. He was evaluated by Speech Therapy regarding cognitive and communication issues. He was found to have deficits to high-level attention and memory tasks. He had a deficit regarding mathematics skills, but this may have been his baseline, and he was impaired in terms of being able to do pencil and paper work for math problems due to his visual impairment. With this deficit, he was not considered safe to do his own medication management. There was an episode of abnormal sensations in his left upper and lower extremities and repeat head CT was done on 04/23/2017, which ruled out CVA extension or hemorrhagic transformation. Blood pressure medicines were titrated; at the end of his stay, he was on losartan 75 mg daily, hydrochlorothiazide 25 mg daily, and amlodipine 5 mg daily. On the day before his planned discharge, he had a home visit with Physical Therapy to assess safety in the home. The plan was for him to return to inpatient rehabilitation subsequently with transportation by his . When he returned to the inpatient rehabilitation unit, he had markedly elevated hypertension with a blood pressure of 180/129. He also had tachycardia with heart rate of 139. He was given an extra amlodipine as well as hydralazine. His blood pressure continued to be elevated with a final reading of 160/119, and a heart rate of 135. With the sudden change after a visit home, it was suspected that he may have ingested a sympathomimetic drug. He was sent to the emergency department for further evaluation, where he admitted to use of methamphetamine after his home visit. From the emergency department, he was transferred to the inpatient hospital for monitoring until the effect of the methamphetamine wore off. Labs during his stay: he had a BMP on 04/27/2017, as part of the evaluation of his accelerated hypertension and it was completely within normal limits. DISCHARGE PLAN: Condition upon discharge is guarded. Activity is per evaluation and on the accepting hospital. Diet is regular. Date of next appointment: If he were discharging from inpatient rehabilitation, he had followup planned with his primary care provider, KATERIN Altamirano, on , at 1:40 p.m., and with neuro-final inspection supervisor/statistical methods professor, Dr. Best Gerardo in approximately 2 weeks. Additionally, the plan from [facility] was for him to follow up with Cardiology for a heart monitor, as his stroke was still considered cryptogenic. Finally, he was referred to [facility] for evaluation and management of methamphetamine abuse. MEDICATIONS AT DISCHARGE: 1. Amlodipine 5 mg p.o. daily. 2. Losartan 75 mg p.o. daily. 3. Atorvastatin 40 mg p.o. daily. 4. Hydrochlorothiazide 25 mg p.o. daily. 5. Aspirin 81 mg p.o. daily. 6. Clopidogrel 75 mg p.o. daily through 05/14/2017, after which he should continue the aspirin but not the clopidogrel. ISSUES TO BE ADDRESSED AT FOLLOWUP: 1. Functional status. He will have continued outpatient physical therapy, occupational therapy, and speech and language pathology after his discharge. 2. Hypertension, and secondary stroke prophylaxis. He should follow up with his primary care provider regarding these issues. 3. Methamphetamine abuse. He should certainly have substance abuse counseling, especially as he has had a stroke. 4. Left homonymous hemianopsia, to be evaluated by Dr. Gerardo regarding Neuro -Ophthalmological treatments. Copy requested to: KATERIN Altamirano /[id number]/MODL MTDD
== END 2017-04-27 22:00 | disposition short-term general hospital (02) | DRG 57 ==
LOC: BREH 15:35
PROVIDERS: ADMIT Internal Medicine; ATTEND Internal Medicine
DX: I69.354 Hemiplegia and hemiparesis following cerebral infarction affecting left non-dominant side (principal); I69.398 Other sequelae of cerebral infarction; H53.462 Homonymous bilateral field defects, left side; I10 Essential (primary) hypertension; E78.5 Hyperlipidemia, unspecified; F15.10 Other stimulant abuse, uncomplicated
CPT/HCPCS: 92507-GN; 92522-GN; 97110-GO; 97110-GP; 97112-GP; 97116-GP; 97140-GP; 97161-GP; 97166-GO; 97530-GO; 97530-GP; 97532-GO; 97535-GO

== ENCOUNTER 2017-04-23 19:47 | Emergency (ER) | payer MEDICAID ==
[2017-04-23 19:58] VITALS: TEMP 98.1; O2SAT 96
--- NOTE | 2017-04-23 20:02 | EDPHY ---
H & P Stated Complaint: Tight feeling in his L thigh and L hand, CVA 04/13/17 Time Seen by Provider: 04/23/17 19:55 HPI/ROS: CHIEF COMPLAINT: Paresthesias left arm and leg HISTORY OF PRESENT ILLNESS: The patient is referred to the ED from inpatient rehab for evaluation of paresthesias to his left arm and leg. The patient has recently experienced an acute ischemic stroke. He has symptoms of vision loss, cognitive changes, speech problems as well as mild left-sided sensory symptoms. The patient reportedly had mildly elevated blood pressures in the 170 range in rehab this evening. He is not on any anticoagulant. I was contacted by the patient's rehab doctor, Dr. Edwina Duckworth, who is requesting the patient undergo emergent CT scan to exclude intracranial hemorrhage. The patient tells me since his stroke he has had a sensation of heaviness and fullness in his left arm and leg. He felt the symptoms acutely worsened this evening. He had no acute weakness or new neurologic symptoms. The patient is noted to have a blood pressure of 130/70 in the emergency department today. REVIEW OF SYSTEMS: A comprehensive 10 point review of systems is otherwise negative aside from elements mentioned in the history of present illness. Source: Patient Exam Limitations: No limitations - Medical/Surgical History Hx Asthma: No Hx Chronic Respiratory Disease: No Hx Diabetes: No Hx Cardiac Disease: No Hx Renal Disease: No Hx Cirrhosis: No Hx Alcoholism: No Hx HIV/AIDS: No Hx Splenectomy or Spleen Trauma: No Other PMH: CVA 04/13/17, HTN - Social History Smoking Status: Never smoked - Physical Exam Exam: General Appearance: Alert, no distress Eyes: Pupils equal and round no pallor or injection ENT, Mouth: Mucous membranes moist Respiratory: There are no retractions, lungs are clear to auscultation Cardiovascular: Regular rate and rhythm Gastrointestinal: Abdomen is soft and nontender, no masses, bowel sounds normal Neurological: Alert and oriented x4, 5/5 strength bilateral upper lower extremities, patient does report a abnormal sensation in his left arm and leg which he describes a pressure. The patient is noted to have a left hominis hemianopia. Skin: Warm and dry, no rashes Musculoskeletal: Neck is supple nontender Extremities: symmetrical, full range of motion Constitutional: Initial Vital Signs Temperature (C) 36.7 C 04/23/17 19:56 Heart Rate 79 04/23/17 19:56 Respiratory Rate 17 04/23/17 19:56 Blood Pressure 167/98 H 04/23/17 19:56 O2 Sat (%) 96 04/23/17 19:56 O2 Delivery Mode Room Air Allergies/Adverse Reactions: prochlorperazine [From Compazine] Allergy (Verified 04/23/17 19:56) Home Medications: Medication Instructions Recorded Acet/Caffeine/Buta Fioricet 2 cap PO Q4 PRN 04/18/17 [Fioricet (*)] Aspirin [Aspirin 81mg (*)] 81 mg PO DAILY 04/18/17 Atorvastatin Calcium [Lipitor 40 40 mg PO DAILY 04/18/17 mg (*)] Clopidogrel Bisulfate [Plavix (*)] 75 mg PO DAILY 04/18/17 FLUoxetine [Prozac 20 MG (*)] 20 mg PO DAILY 04/18/17 Hydrochlorothiazide [HCTZ (*)] 25 mg PO DAILY 04/18/17 Ibuprofen [Motrin (*)] 600 mg PO Q8 PRN 04/18/17 Losartan Potassium [Cozaar 25 mg 50 mg PO DAILY 04/18/17 (*)] Medical Decision Making - Diagnostics Imaging Results: CT head without contrast: Negative for intracranial hemorrhage, no evidence of new stroke or other APPLICATIONS COORDINATOR abnormality. ED Course/Re-evaluation: The patient presents to the ED for acute exacerbation of some ongoing neurologic symptoms following a stroke. The patient appears to have no acute deficits on my examination. The patient did an episode of hypertension earlier today which has resolved. The patient's CT scan demonstrates no evidence of an acute intracranial hemorrhage. There is evidence of an old stroke noted. The patient will be transferred back to rehab per my earlier discussions with Dr. Duckworth in the setting of a unchanged CT scan without hemorrhage in stable vital signs. Differential Diagnosis: Differential diagnosis considered includes acute stroke, intracranial hemorrhage , TIA, peripheral neuropathy Departure - Departure Disposition: Acute Care Hospital Not [facility] Clinical Impression: Homonymous hemianopsia, Cerebrovascular accident (CVA) due to embolism of left posterior cerebral artery, HTN (hypertension) Condition: Fair Referrals: Patient,NotPresent [Primary Care Provider] - As per Instructions
[2017-04-23 21:26] VITALS: BP 155/105; PULSE 76; RESP 16
== END 2017-04-23 21:52 | disposition short-term general hospital (02) ==
LOC: EDUNIT#
DX: H53.462 Homonymous bilateral field defects, left side (principal); I63.9 Cerebral infarction, unspecified; I10 Essential (primary) hypertension; Z79.82 Long term (current) use of aspirin

== ENCOUNTER 2017-04-27 18:24 | Observation (INO) | payer MEDICAID ==
--- NOTE | 2017-04-27 18:37 | CPEKG ---
Heart Rate: 127 RR Interval: 472 P-R Interval: 144 QRSD Interval: 78 QT Interval: 316 QTC Interval: 460 P [place]: 54 QRS [place]: 30 T Wave [place]: -13 EKG Severity - ABNORMAL ECG - EKG Impression: SINUS TACHYCARDIA EKG Impression: PROBABLE LEFT ATRIAL ABNORMALITY EKG Impression: BORDERLINE INFERIOR Q WAVES EKG Impression: BORDERLINE REPOL ABNORMALITY, INF-LAT LEADS Electronically Signed By: Lyndsay Ron 27-Apr-2017 23:04:52
[2017-04-27 18:38] LABS: % IMMATURE GRANULYOCYTES 0.4 % (0.0-1.1); ABSOLUTE IMMATURE GRANULOCYTES 0.05 10^3/uL (0.00-0.10); ADD DIFF? NO; ADD MORPH? NO; ADD SCAN? NO; ATYPICAL LYMPHOCYTE FLAG 20 (0-99); FRAGMENT RBC FLAG 0 (0-99); HEMATOCRIT 49.1 % (40.0-51.0); HEMOGLOBIN 17.8 g/dL (13.7-17.5); LEFT SHIFT FLG 0 (0-99); LIPEMIA HEMOLYSIS FLAG 90 (0-99); MEAN CELL HEMOGLOBIN 32.5 pg (27.9-34.1); MEAN CELL HEMOGLOBIN CONCENTR. 36.3 g/dL (32.4-36.7); MEAN CELL VOLUME 89.8 fL (81.5-99.8); MEAN PLATELET VOLUME 10.2 fL (8.7-11.7); PLATELET CLUMPS FLAG 0 (0-99); PLATELET COUNT 321 10^3/uL (150-400); RED BLOOD CELL COUNT 5.47 10^6/uL (4.40-6.38); RED CELL DISTRIBUTION WIDTH 12.2 % (11.5-15.2)
[2017-04-27] MEDS ORDERED: LORazepam 2 MG/ML INJ IVP ONE ×2 (18:50→19:40)
[2017-04-27 18:52] LABS: ANION GAP 19 mEq/L (8-16); CALCIUM 10.5 mg/dL (8.5-10.4); CARBON DIOXIDE 22 mEq/l (22-31); CHLORIDE 97 mEq/L (97-110); CREATININE 0.8 mg/dL (0.7-1.3); GLOMERULAR FILTRATION RATE > 60; GLUCOSE 149 mg/dL (70-100); POTASSIUM 3.7 mEq/L (3.5-5.2); SODIUM 138 mEq/L (134-144)
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
[2017-04-27] MEDS ORDERED: NS 500 ML IV ONE (20:04)
[2017-04-27] MEDS ORDERED: ONDANSETRON 4 MG/2 ML VIAL IVP PRN (21:48)
[2017-04-27] MEDS ORDERED: ACETAMINOPHEN 325 MG TAB PO PRN (21:48)
[2017-04-27] MEDS ORDERED: LORazepam 0.5 MG TAB PO PRN (21:48)
[2017-04-27] MEDS ORDERED: hydrALAZINE 20 MG/ML VIAL IVP PRN (21:48)
[2017-04-27] MEDS ORDERED: NS 1,000 ML IV SCH (22:00)
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
[2017-04-28 05:54] LABS: % IMMATURE GRANULYOCYTES 0.3 % (0.0-1.1); ABSOLUTE IMMATURE GRANULOCYTES 0.03 10^3/uL (0.00-0.10); ADD DIFF? NO; ADD MORPH? NO; ADD SCAN? NO; ATYPICAL LYMPHOCYTE FLAG 30 (0-99); FRAGMENT RBC FLAG 0 (0-99); HEMATOCRIT 45.4 % (40.0-51.0); LEFT SHIFT FLG 0 (0-99); LIPEMIA HEMOLYSIS FLAG 90 (0-99); MEAN CELL HEMOGLOBIN 32.1 pg (27.9-34.1); MEAN CELL HEMOGLOBIN CONCENTR. 35.2 g/dL (32.4-36.7); MEAN PLATELET VOLUME 10.1 fL (8.7-11.7); PLATELET CLUMPS FLAG 0 (0-99); PLATELET COUNT 289 10^3/uL (150-400); RED BLOOD CELL COUNT 4.99 10^6/uL (4.40-6.38); RED CELL DISTRIBUTION WIDTH 12.5 % (11.5-15.2)
[2017-04-28 08:59] VITALS: PULSE 87; RESP 11; TEMP 98.1; O2SAT 94
[2017-04-28] MEDS ORDERED: ATORVASTATIN CALCIUM 40 MG TAB PO SCH (09:00)
[2017-04-28] MEDS ORDERED: HYDROCHLOROTHIAZIDE 25 MG TAB PO SCH (09:00)
[2017-04-28] MEDS ORDERED: ENOXAPARIN 40 MG/0.4 ML SYR SC SCH (09:00)
[2017-04-28] MEDS ORDERED: amLODIPine BESYLATE 5 MG TAB PO SCH (09:00)
[2017-04-28] MEDS ORDERED: CLOPIDOGREL BISULFATE 75 MG TAB PO SCH (09:00)
[2017-04-28] MEDS ORDERED: ASPIRIN EC 81 MG TAB PO SCH (09:00)
[2017-04-28] MEDS ORDERED: LOSARTAN POTASSIUM 50 MG TAB PO SCH (09:00)
--- NOTE | 2017-04-28 11:05 | ASMTCASEMG ---
Living Arrangements What is your living Answers: With Spouse arrangement? Who do you live with? Type Of Residence What kind of residence do Answers: House you live in? Discharge Plan Comments Coordination Status Comments Notes: Chart reviewed and spoke w/ ALEJANDRA Rivers, pt is a 46 y/o man admitted w/ hypertensive urgency. Pt was a patient at [facility] inpatient rehab. Pt had a pass yesterday to go home and relapsed on meth. Pt is being discharge independent w/ supportive today. CM met w/ pt and and provided resources for subtance abuse tx and resources for vision care. CM spoke w/ pt about going to and getting a sponsor. CM available for changes. Date Signed: 04/28/2017 11:04 AM Electronically Signed By:PANCHO Mathews
[2017-04-28 11:45] VITALS: BP 125/78
--- NOTE | 2017-04-28 12:33 | ASDISCHSUM ---
Discharge Information Plan Status:Home with No Needs Medically Cleared to Leave:04/28/2017 Discharge Date:04/28/2017 12:20 PM CM D/C Disposition: ADT D/C Disposition:Home, Routine, Self-Care Projected Discharge Date:04/28/2017 12:00 AM Transportation at D/C: Discharge Delay Reason: Follow-Up Date:04/28/2017 12:00 AM Discharge Slot: Final Diagnosis: Placement Information Patient Contact Information Contact Name:NILDA Relationship: Address:[address] City:[place] Alternate Phone: [facility]/Zip Code:[place] [address] Email: Financial Information Financial Class: Primary Plan Desc:[employer] Primary Plan Number:[id number] Secondary Plan Desc: Secondary Plan Number: Assessment Information [facility] Initial CM Assessment Living Arrangements What is your living Answers: With Spouse arrangement? Who do you live with? Type Of Residence What kind of residence do Answers: House you live in? Discharge Plan Comments Coordination Status Comments Notes: Chart reviewed and spoke w/ ALEJANDRA Rivers, pt is a 46 y/o man admitted w/ hypertensive urgency. Pt was a patient at [facility] inpatient [facility]. Pt had a pass yesterday to go home and relapsed on meth. Pt is being discharge independent w/ supportive today. CM met w/ pt and and provided resources for subtance abuse tx and resources for vision care. CM spoke w/ pt about going to and getting a sponsor. SANDRA available for changes. Date Signed: 04/28/2017 11:04 AM Electronically Signed By:PANCHO Mathews Intervention Information Intervention Type:*Incorrect Registration Date of Service:04/28/2017 05:09 AM Patient Type:Inpatient Staff Member:ALEJANDRA Oconnor Kerry Hours: Discipline: Severity: Comment:
--- NOTE | 2017-04-28 22:18 | GDS ---
[f rep st] DISCHARGE SUMMARY DISCHARGE DIAGNOSES: 1. Uncontrolled hypertension. 2. Recent stroke. 3. Methamphetamine abuse. HISTORY: For details, please see history and physical dated discharge April 27. In brief, the patient is a 46-year-old male with a history of hypertension who was admitted to our rehab unit on from [facility] after suffering a stroke. On the day of admission, he was do ing a home visit with the therapy team in preparation for discharge home on that day. He was given t he opportunity to do a couple of areas at home prior to returning to the inpatient rehab unit. He ap parently ran to his friends, and he relapsed and used methamphetamine. When he later returned to the rehab unit, he was noted to have severe hypertension and went back to the emergency department where he was admitted for further management. HOSPITAL COURSE: The patient was admitted to the cardiac unit. His regular antihypertensive medicat ions were resumed including losartan, hydrochlorothiazide and amlodipine. He was also continued on h is aspirin, Plavix and statin, which were started after his recent stroke. The methamphetamine wore off. His blood pressure in the morning of discharge was 125/78. The patien t feels well, albeit remorseful and he is committed to maintaining recovery. He will have close foll owup with his PCP for ongoing resource counseling. He was evaluated by the therapy team and deemed s afe for discharge home. DISPOSITION: Patient was discharged home in stable condition. FOLLOWUP: 1. Primary care. 2. Neurology. DISCHARGE MEDICATIONS: [facility]. Medications to be continued as previously prescribed: 1. Norvasc 5 mg p.o. daily, #30. 2. Atorvastatin 40 mg p.o. daily, #30. 3. HCTZ 25 mg p.o. daily, #30. 4. Losartan 75 mg p.o. daily, #30. New prescriptions include: Aspirin 81 mg p.o. daily, #30, no refills, and Plavix 75 mg p.o. daily, # 30, no refills. /[id number]/MODL
== END 2017-04-28 12:20 | disposition home or self-care (01) ==
LOC: EDUNIT# → INTOOBSV 19:36 → F2W 21:25
PROVIDERS: ADMIT Internal Medicine; ATTEND Hospitalist
DX: I16.0 Hypertensive urgency (principal); F15.10 Other stimulant abuse, uncomplicated; I69.354 Hemiplegia and hemiparesis following cerebral infarction affecting left non-dominant side; D68.52 Prothrombin gene mutation; Z91.14 Patient's other noncompliance with medication regimen
CPT/HCPCS: 93005; 96361; 96374; 96376; 97161; 97165; 99285; G0378; 80305; J1650; J2060